=== PATIENT | male | born 1990 | race Caucasian/White ===

== ENCOUNTER 2023-05-09 07:47 | Emergency (ER) | payer MEDICAID, SELFPAY ==
[2023-05-09 07:49] VITALS: BP 157/96; PULSE 64; RESP 14; TEMP 36.6; O2SAT 99; BMI 28.6
--- NOTE | 2023-05-09 08:01 | EDS_ITS ---
HPI History of Present Illness Chief Complaint: GI Bleed Informant: patient Narrative Narrative: Patient states for the last year or so, he wakes up every morning with a lot of congestion/phlegm that he needs to clear, he ends up coughing some but vomiting almost every morning, occasionally there are small bits of blood but nothing major, this morning this occurred and for the first time he vomited twice and there was ash blood both times. He feels fine now. No other symptoms. He denies any pain when he eats, any abdominal discomfort, any trouble breathing. Some occasional sharp chest pains on the right that did not occur this morning. [facility] Medical History no medical history no medical history Allergy/AdvReac Type Severity Reaction Status Date / Time No Known Allergies Allergy Verified 05/09/23 07:48 Surgical History unable to obtain unable to obtain (Surgery throat/neck, unknown if ENT, GI, general, etc.) Social History Smoking Status: Never smoker ROS ROS ED Constitutional Constitutional ED: Denies chills or fever(s) Eyes Eyes: Denies change in vision or diplopia ENT ENT ED: Reports as per HPI and nasal congestion; Denies headache(s), rhinorrhea, sore throat or vertigo Cardiovascular Cardiovascular: Denies chest pain or palpitations Respiratory/Chest Respiratory/Chest: Denies cough or dyspnea Gastrointestinal Gastrointestinal: Reports nausea and vomiting; Denies abdominal pain or diarrhea Genitourinary Genitourinary ED: Denies dysuria or hematuria Musculoskeletal Musculoskeletal: Denies back pain or neck pain Integumentary Denies abscess or rash Neurologic Neurologic: Denies headache(s), paresthesias or weakness Psychiatric Psychiatric: Denies anxiety or suicidal thoughts EXAM Physical Exam Const Vital Signs: 05/09/23 07:49 Temperature 98 F Temperature Source Temporal Pulse Rate 64 Respiratory Rate 14 Blood Pressure 157/96 H Blood Pressure Mean 116 Pulse Ox 99 Oxygen Delivery Method Room Air Positive well nourished and well developed General Appearance ED: well developed and NAD HEENT Reports moist mucous membranes HEENT Narrative: P OP clear, normal. No sign of bleeding or residual blood. No nasal blood. normocephalic and atraumatic Eyes PERRL and EOMs intact bilaterally Neck full ROM and supple Chest Wall inspection of chest normal and palpation of chest normal Resp normal respiratory effort and clear to auscultation bilaterally Cardio regular rate, regular rhythm and no murmurs Rate: Negative for tachycardic GI non-tender and non-distended Auscultation: normoactive bowel sounds Palpation: soft Back/Spine no CVA tenderness General Back: other FROM Extremity normal to inspection General Extremety ED: Negative for edema, pulses abnormal or tenderness General Extremity: Negative for edema or pulses abnormal Neuro oriented x3, CN's II-XII intact bilaterally and no sensory deficits noted Sensorium / Orientation: awake and alert Motor Exam: strength 5/5 throughout Skin no rashes or lesions noted and no wounds MDM MDM MDM Narrative Medical decision making narrative: Labs obtained and are reassuringly normal. No elevated BUN to suggest a significant upper GI bleed. He was given a Protonix prior to these labs returning but I do not think we need to put him on it going forward. I think this sounds more like an ENT issue which is probably the source of the bleeding, but I do not think getting any imaging right now is necessarily going to help emergently. I think he is probably going to need a scope if the symptoms continue, so I will refer him to ENT and also GI. He does not need scoped emergently. No one is on-call at this time. Lab Data Attestation: I reviewed the patient's lab results. Labs: Laboratory Results - last 24 hr 05/09/23 08:05 WBC 5.4 RBC 4.68 Hgb 13.5 Hct 41.9 MCV 89.5 MCH 28.8 MCHC 32.2 RDW Std Deviation 40.8 RDW Coeff of Ernie 12.6 Plt Count 235 MPV 10.5 Immature Gran % (Auto) 0.900 Neut % (Auto) 60.6 Lymph % (Auto) 27.9 [place] % (Auto) 7.8 Eos % (Auto) 2.2 Baso % (Auto) 0.6 Absolute Neuts (auto) 3.3 Absolute Lymphs (auto) 1.50 Nucleated RBC % 0 Sodium 140 Potassium 4.1 Chloride 109 H Carbon Dioxide 27.0 Anion Gap 4 L BUN 15 Creatinine 1.06 Estim Creat Clear Calc 115.24 Est GFR (MDRD) Af Amer 103 Est GFR (MDRD) Non-Af 85 BUN/Creatinine Ratio 14.2 Glucose 105 Calcium 8.9 Discharge Plan Triage Chief Complaint: GI Bleed ED Provider: Anthony Alvarado Dx/Rx/DC Orders Clinical Impression: Chronic nasal congestion, Hematemesis Instructions: ED Upper GI Bleeding (Stable) Primary Care Provider: Care Physician,No Primary Referrals: José Miguel Izquierdo MD [Med Staff - Active Staff] - Friend,DO Bradley [Med Staff - Active Staff] - Care Physician,No Primary [Primary Care Provider] - Disposition Disposition: Home, Self Care
[2023-05-09 08:15] LABS: Absolute Neutrophil Count 3.3 X10^3/uL (2.0-7.7); Basophil# 0.03 X10^3/uL; Basophil% 0.6 % (0-1); Eosinophil# 0.12 X10^3/uL; Eosinophils% 2.2 % (0-5); Hematocrit 41.9 % (40-54); Hemoglobin 13.5 g/dL (13.0-16.5); Lymphocyte % 27.9 % (19-41); Mean Corp Hgb Conc 32.2 g/dL (32-36); Mean Corpuscular Hgb 28.8 pg (27.0-32.0); Mean Corpuscular Volume 89.5 fL (80-94); Mean Platelet Vol. 10.5 fl (6.2-12.0); Monocyte# 0.42 X10^3/uL; Monocyte% 7.8 % (0-10); NRBC Flagged by Analyzer 0 % (0-5); Neutrophil # 3.26 X10^3/uL (2.7-7.7); Neutrophil % 60.6 % (47-70); Platelet Count 235 K/mm3 (150-450); RBC Distribution Width CV 12.6 % (11.6-14.6); RBC Distribution Width SD 40.8 fl (35.1-43.9); Red Blood Count 4.68 M/mm3 (4.6-6.2); White Blood Count 5.4 K/mm3 (4.4-11.0)
[2023-05-09] MEDS: Pantoprazole Sodium 40 MG Tablet PO (08:15)
[2023-05-09 08:27] LABS: Anion Gap 4 (5-15); BUN 15 mg/dL (7-18); BUN/Creat Ratio 14.2 RATIO (10-20); Calcium,Total 8.9 mg/dL (8.5-10.1); Chloride 109 mmol/L (98-107); Creatinine, Serum 1.06 mg/dL (0.70-1.30); EST Glomerular Filtration Rate 85 mL/min (>60); Est Glom Filt Rate - Afr Amer 103 mL/min (>60); Estimated Creatinine Clearance 115.24 ml/min; Glucose 105 mg/dL (74-106); Potassium 4.1 mmol/L (3.5-5.1); Sodium Level 140 mmol/L (136-145)
== END 2023-05-09 09:32 | disposition home or self-care (01) ==
PROVIDERS: Emergency Provider Emergency Medicine; Visit Provider Emergency Medicine
DX: R09.81 Nasal congestion (principal); K92.0 Hematemesis
CPT/HCPCS: 80048; 85025; 99283; A4216

== ENCOUNTER → 2023-06-05 | Outpatient (CLI) | payer MEDICAID, SELFPAY ==
--- NOTE | 2023-06-06 10:37 | PFT ---
INTRODUCTION: The patient is a 32-year-old male who presents for pulmonary function studies secondary to a diagnosis of hemoptysis. Respiratory therapy reported good patient effort. Bronchodilators were used during testing. INTERPRETATION: Forced expiration spirometry demonstrated no evidence of a large airways obstructive ventilatory defect. There was no significant response to aerosolized bronchodilators. Spirograms are of good quality and plateau normally. The respiratory flow-volume loop is normal. Body plethysmography was performed and revealed lung volumes to be within normal limits. Diffusing capacity by single breath CO was also within normal limits. IMPRESSION: Grossly normal pulmonary function studies.
== END | disposition home or self-care (01) ==
LOC: PSN 08:41
PROVIDERS: Referring Provider Internal Medicine Critical Care Medicine; Visit Provider Internal Medicine Critical Care Medicine
DX: R04.2 Hemoptysis (principal)
CPT/HCPCS: 94060; 94726; 94729

== ENCOUNTER → 2023-09-10 | Outpatient (CLI) | payer MEDICAID, SELFPAY ==
--- NOTE | 2023-09-10 08:51 | CT_ITS ---
INDICATION: Hemoptysis EXAMINATION: CT CHEST WITH CONTRAST - CT Chest W/ Contrast Injection TECHNIQUE: Helically acquired images were obtained of the chest following IV contrast. A radiation dose optimization technique was used for this scan. IV Contrast dosage and agent: 100 mL Isovue 300 contrast COMPARISON: None. FINDINGS: LUNGS, PLEURA AND LARGE AIRWAYS: No masses, consolidation, or edema. No pleural effusion or thickening. No pneumothorax. THYROID: No thyroid lesions. HEART AND PERICARDIUM: Heart size is normal. No pericardial effusion. VESSELS: Thoracic aorta is not dilated. No aortic dissection. No obvious central pulmonary embolism although this study was not performed with the pulmonary embolism protocol. MEDIASTINUM AND CHRISTINA: No mediastinal or hilar adenopathy. Esophagus is unremarkable. No hiatal hernia. UPPER ABDOMEN: No acute pathology. BONES: No suspicious lytic or blastic abnormality. CT/Chest WITH Contrast IMPRESSION: Negative contrast enhanced CT of the chest. Electronically Signed: Ortega Barry MD at 10:56 EST ,
== END | disposition home or self-care (01) ==
LOC: CT 08:51
PROVIDERS: Referring Provider Internal Medicine Critical Care Medicine; Visit Provider Internal Medicine Critical Care Medicine
DX: R04.2 Hemoptysis (principal)
CPT/HCPCS: 71260; Q9967

== ENCOUNTER 2023-09-12 10:08 | Emergency (ER) | payer MEDICAID, SELFPAY ==
[2023-09-12 10:09] VITALS: BP 152/96; PULSE 83; RESP 16; TEMP 36.8; O2SAT 100; BMI 29.7
--- NOTE | 2023-09-12 10:36 | EKG12_ITS ---
Test Reason : CP Blood Pressure : / mmHG Vent. Rate : 055 BPM Atrial Rate : 055 BPM P-R Int : 148 ms QRS Dur : 094 ms QT Int : 414 ms P-R-T Axes : 031 059 043 degrees QTc Int : 396 ms Sinus bradycardia Otherwise normal ECG Confirmed by TRAY DAI, PADMINI ([id number]), script editor SYLVIE RAMIREZ ([id number]) on 09/16/2023 8:23:39 AM Referred By: PARKER/FARNAZ Confirmed By:PADMINI FELIZ MD
--- NOTE | 2023-09-12 10:42 | EDS_ITS ---
HPI History of Present Illness Chief Complaint: Syncope Informant: patient Narrative Narrative: Patient presents after episode of chest pain. Patient states he was watching TV last night. He had eaten lasagna and thought it tasted great. He got pain in his right lower chest or right upper quadrant area. He thought this might be gas pains or he had to move his bowels. So he got up and went to the bathroom. Evidently while sitting on the toilet he got pale lightheaded. His checked on him. He reports that he evidently curled over in a ball and his arms got real tight. No tonic-clonic shaking. He seemed to be less responsive. But he did not fall. His then got him up and he went into the other room. He said this whole episode lasted probably anywhere from about 15 seconds to a max of 3 minutes. He does not have pain in that area anymore. He does have a little soreness in his left upper chest. But it is not sharp or pleuritic. Not tearing or ripping. It does not radiate. He also states he just does not feel real well today. But no specific symptoms. He does not have chest pain with a deep breath now. He is not coughing. Patient does have a history of some episodes of hemoptysis over the last couple months. He just had a CT scan of the chest with contrast yesterday. I reviewed this outpatient study. Although it was not specifically timed as a pulmonary embolus protocol, they comment no significant PE or dissection. Patient has no recent travel surgery immobilization personal or family history of DVT or PE or leg pain or swelling. He is not having hemoptysis now. There is no family history of heart disease. He used to smoke but quit 7 or 8 years ago. No blood pressure or diabetes. He has never had a seizure. He was evidently not postictal or confused for period of time after this. [facility] Medical History (Updated 09/12/23 @ 13:[address] Fredy Villa MD) Syncope Home Medications NK 05/30/23 [History Last Taken Unknown] Allergy/AdvReac Type Severity Reaction Status Date / Time No Known Allergies Allergy Verified 09/12/23 10:09 Social History household members: spouse and children Smoking Status: Unknown if ever smoked Tobacco: How many years used: 10 second hand exposure: Yes alcohol intake: current alcohol intake frequency: holidays/special occasions only caffeine: Yes ROS ROS ED ROS Narrative A complete review of systems was performed and is negative except as documented in the history of present illness. Some specific details below. Constitutional: No recent fevers or chills. He states he does have a mild sense of malaise. EYE: No discharge, visual complaints, or pain. ENT: No difficulty swallowing. No swelling. No pain. No reflux symptoms. No history of GERD. CV: See history of present illness. Respiratory: See history of present illness. Not coughing and not hypoxic or short of breath now. GI: No abdominal pain now. He did have pain in either the right lower chest or right upper quadrant yesterday/last night but not currently. No nausea vomiting diarrhea. No blood in stool. : No frequency dysuria or hematuria. No history of kidney stones. Musculoskeletal: No recent trauma. No pains. No swelling. Skin: No rash. Nondiaphoretic. Neuro: No weakness or numbness. Endocrine: No polyuria or polydipsia. EXAM Physical Exam Narrative Exam Narrative: CONSTITUTIONAL: Patient is nontoxic in appearance. The patient looks comfortable. Work of breathing looks normal. HEENT: No notable trauma. Mucous membranes moist. No sinus tenderness. No indication of pain with swallowing. EYES: No pallor or icterus. NECK:No JVD. No stridor. CARDIOVASCULAR: Regular rate. Regular rhythm. No notable murmur. No JVD. Rates only about 60 on exam. Peripheral pulses are normal x 4. RESPIRATORY: No respiratory distress. Breathing is unlabored. No wheezes. No rhonchi. No rales. No pain with a deep breath. No chest wall tenderness. Pulmonary exam is very benign. Saturations are 100% on room air showing no hypoxia. GASTROINTESTINAL: Not distended. Bowel sounds are normal. No tenderness. No guarding. No rebound. No palpable mass. No bruit is heard. GENITOURINARY: No tenderness over the bladder. No CVA tenderness. MUSCULOSKELETAL: Atraumatic. No peripheral edema. No cord. No tenderness along the deep venous system. No asymmetry. No distended veins. NEUROLOGICAL: Patient is alert and appropriate. No focal deficit noted. SKIN: No noted rashes. No diaphoresis. PSYCHIATRIC: Patient is calm. Mood is appropriate. Const Vital Signs: 09/12/23 10:09 09/12/23 11:00 09/12/23 11:02 Temperature 98.2 F Temperature Source Temporal Pulse Rate 83 64 Respiratory Rate 16 18 Respiratory Effort Normal Non-Labored Respiratory Pattern Normal Blood Pressure 152/96 H 131/81 H Blood Pressure Mean 114 97 Pulse Ox 100 95 Oxygen Delivery Method Room Air Room Air 09/12/23 11:17 Temperature Temperature Source Pulse Rate 70 Respiratory Rate 16 Respiratory Effort Respiratory Pattern Blood Pressure 137/85 H Blood Pressure Mean 102 Pulse Ox 97 Oxygen Delivery Method MDM MDM MDM Narrative Medical decision making narrative: My independent interpretation of the patient's chest x-ray shows no acute process. Patient CBC is normal including white count hemoglobin and platelets. Graph scarlett gonzales's electrolytes are normal. Patient is function test are normal. Patient is lipase is normal. Patient's troponin is negative Patient's COVID test is positive. His influenza and RSV's are negative. Patient has remained asymptomatic here. He had this event occur last night. I do not think we need to repeat the CT of his chest. He had 1 done yesterday. He is PERC negative. We will get him home at this time. I think seizure is less likely as he had no tonic-clonic activity. But outpatient EEG is not unreasonable. We will refer him to a primary physician. We discussed reasons to return. Lab Data Attestation: I reviewed the patient's lab results. Labs: Laboratory Results - last 24 hr 09/12/23 10:23 WBC 6.0 RBC 4.94 Hgb 14.2 Hct 43.6 MCV 88.3 MCH 28.7 MCHC 32.6 RDW Std Deviation 39.8 RDW Coeff of Ernie 12.4 Plt Count 231 MPV 10.8 Immature Gran % (Auto) 0.700 Neut % (Auto) 61.0 Lymph % (Auto) 23.7 [place] % (Auto) 13.1 H Eos % (Auto) 1.2 Baso % (Auto) 0.3 Absolute Neuts (auto) 3.6 Absolute Lymphs (auto) 1.41 Nucleated RBC % 0 Sodium 140 Potassium 3.8 Chloride 107 Carbon Dioxide 26.0 Anion Gap 7 BUN 11 Creatinine 1.18 Estim Creat Clear Calc 103.52 Est GFR (MDRD) Af Amer 91 Est GFR (MDRD) Non-Af 75 BUN/Creatinine Ratio 9.3 L Glucose 94 Calcium 8.7 Total Bilirubin 0.70 AST 23 ALT 29 Alkaline Phosphatase 95 Troponin I High Sens 17 Total Protein 8.1 Albumin 3.9 Globulin 4.2 Albumin/Globulin Ratio 0.9 Lipase 37 Radiography Diagnostic Testing: Clinical Impression(s) from Imaging Studies Chest X-Ray 09/12/23 10:52 IMPRESSION: No radiographic evidence of acute cardiopulmonary disease. Electronically Signed: Isidoro Berger MD at 11:30 EST , EKG Initial EKG: Comments: My independent interpretation of the patient's EKG shows sinus rhythm with bradycardic rate at 55. No acute ST elevation or depression. VT interval, QRS duration and QTc is normal. Discharge Plan Triage Chief Complaint: Syncope ED Provider: Fredy Villa Dx/Rx/DC Orders Clinical Impression: COVID-19, Episode of syncope, Chest pain Instructions: Coronavirus Disease 2019 (COVID-19): Caring for Yourself or Others, ED Fainting, Uncertain Cause Prescriptions: No Action NK Primary Care Provider: Care Physician,No Primary Referrals: Fritz Burrell MD [Med Staff - Industrial [employer] Helper] - As soon as possible Care Physician,No Primary [Primary Care Provider] - Disposition Disposition: Home, Self Care
--- NOTE | 2023-09-12 10:46 | NURSING ---
NO OLD EKGS
--- NOTE | 2023-09-12 10:52 | RAD_ITS ---
INDICATION: chest pain EXAMINATION/TECHNIQUE: X-RAY - XR Chest 1 View COMPARISON: CT scan of the chest of 09/10/2023. FINDINGS: LINES/DEVICES: None. LUNGS: No consolidation, edema or effusion. No pneumothorax. MEDIASTINUM AND CARDIOVASCULAR STRUCTURES: Cardiac silhouette not enlarged. Central airways and mediastinal contour are unremarkable. BONES AND SOFT TISSUES: Unremarkable. RAD/Chest 1 View (Portable) IMPRESSION: No radiographic evidence of acute cardiopulmonary disease. Electronically Signed: Isidoro Berger MD at 11:30 EST ,
[2023-09-12 10:54] LABS: Absolute Lymphocyte Count 1.41 X10^3/uL (0.83-4.51); Absolute Neutrophil Count 3.6 X10^3/uL (2.0-7.7); Basophil# 0.02 X10^3/uL; Basophil% 0.3 % (0-1); Eosinophil# 0.07 X10^3/uL; Eosinophils% 1.2 % (0-5); Hematocrit 43.6 % (40-54); Hemoglobin 14.2 g/dL (13.0-16.5); Lymphocyte # 1.41 X10^3/ul (0.83-4.51); Lymphocyte % 23.7 % (19-41); Mean Corp Hgb Conc 32.6 g/dL (32-36); Mean Corpuscular Hgb 28.7 pg (27.0-32.0); Mean Corpuscular Volume 88.3 fL (80-94); Mean Platelet Vol. 10.8 fl (6.2-12.0); Monocyte# 0.78 X10^3/uL; Monocyte% 13.1 % (0-10); NRBC Flagged by Analyzer 0 % (0-5); Neutrophil # 3.63 X10^3/uL (2.7-7.7); Platelet Count 231 K/mm3 (150-450); RBC Distribution Width CV 12.4 % (11.6-14.6); RBC Distribution Width SD 39.8 fl (35.1-43.9); Red Blood Count 4.94 M/mm3 (4.6-6.2)
[2023-09-12] MEDS: 0.9% Normal Saline (1000mL) 1,000 ML 1000 ML IV (10:56)
--- OUTSIDE RECORDS SUMMARY | 2023-09-12 10:57 | XMS RPT_ITS | CCD ---
Author Name Unknown Address [address] [place] [address] [address] [place] [address] Organization [facility] Care Team Providers Care Glaze Grinder Name Role Phone Mecca DAI, Pranav Crenshaw Primary Care Provider Unavailable Primary Care Provider Unavailabl e Medications Completed/Discontinued Medications Medication Drug Class(es) Dates Sig (Normalized) Sig (Original) FLINTSTONES MULTIVITAMIN ORAL (1 source) FLINTSTONES MULTIVITAMIN ORAL Take by mouth. 0 Active Problems Problem Classification Problem Date Documented Da te Episodic/Chronic Gastrointestinal hemorrhage (1 source) Hematemesis; Translations: [Hematemesis] 05-09-2023 Episodic Other lower respiratory disease (2 sources) Dyspnea; Translations: [Shortness of breath] Onset: 01-23-2021 Episodic Residual codes; unclassified (1 source) Obstructive sleep apnea syndrome; Translations: [Obstructive sleep apnea (adult) (pediatric)] Onset: 01-23-2021 01-23-2021 Chronic Results Test Name Value Interpretation Reference Range Facil ity Vital Signs Date Time Vital Sign Value Performing Clinician Griselda whalen 05-09-2023 07:20-0400 Body temperature 96.6 [degF] Batool BARAJAS-Clarke Work Phone: [facility] 05-09-2023 07:20-0400 Body weight 101.79 kg Batool Cooper PA-C Work Phone: [facility] 05-09-2023 07:20-0400 Diastolic blood pressure 88 mm[Hg] Batool Cooper PA-C Work Phone: [facility] 05-09-2023 07:20-0400 Heart rate 62 /min Batool Cooper PA-C Work Phone: [facility] 05-09-2023 07:20-0400 Respiratory rate 18 /min Batool Cooper PA-C Work Phone: [facility] 05-09-2023 07:20-0400 SaO2% (BldA) [Mass fraction] 99 % Batool Cooper PA-C Work Phone: [facility] 05-09-2023 07:20-0400 Systolic blood pressure 151 mm[Hg] Batool Cooper PA-C Work Phone: [facility] Encounters Encounter Date Encounter Type Care Provider Facility Start: 05-09-2023 End: 05-09-2023 ambulatory Facility:[facility] Start: 05-09-2023 End: 05-09-2023 Patient encounter procedure Batool Cooper PA-C Work Phone: [facility] Procedures Date Procedure Procedure Detail Performing Clinician Start: 01-23-2021 Radiologic exam ches t 2 views Pranav Wing MD Work Phone: Plan of Treatment Date Care Activity Detail Author Start: 05-16-2023 Influenza vaccination INFLUENZA (#1) [facility] Start: 09-15-2022 DEPRESSION ASSESSMENT DEPRESSION ASS ESSMENT [facility] Start: 01-23-2022 COVID-19 Vaccine (1) COVID-19 Vaccin e (1) [facility] Work Phone: Payers Date Payer Category Payer Unknown [facility] [id number] 2019-Present [phone] [place] [id number] Social History Date Type Detail Facility Start: 01-23-2021 End: 05-09-2023 Tobacco smoking status NHIS Former smoker [facility] End: 09-15-2005 History of tobacco use Current smoker [facility] End: 09-15-2005 History of tobacco use Cigarette Smoker [facility] Start: 08-24-2020 End: 01-23-2021 Cigarettes smoked current (pack per day) - Reported [facility] Work Phone: Start: 01-23-2021 Tobacco use and exposure Current user [facility] History of tobacco use Chews Tobacco [facility] Start: 01-23-2021 Alcohol intake Ex-drinker (finding) [facility] Work Phone: Start: 01-23-2021 History SDOH Alcohol Frequency 1 [facility] Work Phone: Start: 01-23-2021 History SDOH Alcohol Std Drinks 99 [facility] Work Phone: Start: 01-23-2021 History SDOH Physica l Activity DPW 0 [facility] Work Phone: Start: 01-23-2021 History SDOH Financial 5 [facility] Work Phone: Start: 01-23-2021 History SDOH Transpo rt Med 2 [facility] Work Phone: Start: 1990 Sex Assigned At Not on file [facility] Work Phone: Exposure to SARS-CoV -2 (event) Not sure [facility] Start: 05-09-2023 Tobacco use and exposure Former smokeless tobacco user [facility] Start: 05-09-2023 Alcohol intake Current drinke r of alcohol (finding) [facility] Start: 08-24-2020 End: 05-09-2023 Tobacco use panel [facility] National Score (1-10 0), lower number is lower risk Not on file [facility] Start: 04-28-2018 Alcohol Comment rare [facility] Progress note 05-09-2023 Note Date & Type Note Facility 05-09-2023 Note HNO ID: [id number] Author: Batool Cooper PA-C Service: ? Author Type: Physician Bench Worker Type: Progress Notes Filed: 05/09/2023 7:31 AM Note Text: Patient presents to express care triage with a chief complaint of vomiting blood. He states he typically will vomit in the morning but this morning had vomited once and had a mouthful of bright red blood. Denies any abdominal or chest pain. Denies any history of alcoholism or esophageal varices. He denies history of peptic ulcer disease. Discussed with patient for this complaint would recommend he be seen in the emergency department. Referred to [facility] ed. [facility] History of Present illness Narrative 05-09-2023 Batool Cooper PA-C - 05/09/2023 7:29 AM EDT Note Date & Type Note Facility 05-09-2023 History of Presen t illness Narrative Patient presents to express care triage with a chief complaint of vomiting blood. He states he typically will vomit in the morning but this morning had vomited once and had a mouthful of bright red blood. Denies any abdominal or chest pain. Denies any history of alcoholism or esophageal varices. He denies history of peptic ulcer disease. Discussed with patient for this complaint would recommend he be seen in the emergency department. Referred to [facility] ed. documented in this encounter [facility] Evaluation note Note Date & Type Note Facility documented in this encounter [employer] Phone: Evaluation note Note Date & Type Note Facility documented in this encounter [facility] Summary Purpose Family History No Family History Records FoundNo Family History Records FoundNo Family History Records Found Advance Directives No Advanced Directives Records FoundNo Advanced Directives Records FoundNo Advanced Directives Records Found Additional Source Comments (unrecognized sect ion and content) No Status Records FoundNo Status Records FoundNo Status Records Found INFORMATION SOURCE (unrecogn ized section and content) DATE CREATED AUTHOR AUTHOR'S ORGANIZ ATION 05/10/2023 [facility] DATE CREATED AUTHOR AUTHOR'S ORGANIZ ATION 05/20/2023 [facility] [employer] [facility] Source Comments (unrecognize d section and content) In the event this informatio n is protected by the Federal Confidentiality of Alcohol and Drug Abuse Patient Records regulations: The Federal rules restrict any use of the information to criminally investigate or prosecute any alcohol or drug abuse patient.[facility] Reason for Visit (unrecogniz ed section and content) FOR RECORDS PERTAINING TO PATIENTS WHO ARE OR HAVE BEEN ENROLLED IN A CHEMICAL DEPENDENCY/SUBSTANCEABUSE PROGRAM, SOME INFORMATION MAY BE OMITTED. This clinical summary was aggregated from multiple sources. Caution should be exercised in using it in the provision of clinical care. This summary normalizes information from multiple sources, and as a consequence, information in this document may materially change the coding, format and clinical context of patient data. In addition, data may be omitted in some cases. CLINICAL DECISIONS SHOULD BE BASED ON THE PRIMARY CLINICAL RECORDS. [facility] provides no warranty or guarantee of the accuracy or completeness of information in this document.
[2023-09-12 11:02] VITALS: BP 131/81; PULSE 64; RESP 18; O2SAT 95
[2023-09-12 11:06] LABS: ALB/GLOB Ratio 0.9 RATIO (0.9-2.4); AST(SGOT) 23 U/L (15-37); Alanine Aminotransfer ALT/SGPT 29 U/L (16-61); Albumin, Serum 3.9 g/dL (3.2-5.0); Alkaline Phosphatase 95 U/L (45-117); Anion Gap 7 (5-15); BUN 11 mg/dL (7-18); BUN/Creat Ratio 9.3 RATIO (10-20); Calcium,Total 8.7 mg/dL (8.5-10.1); Chloride 107 mmol/L (98-107); Creatinine, Serum 1.18 mg/dL (0.70-1.30); EST Glomerular Filtration Rate 75 mL/min (>60); Est Glom Filt Rate - Afr Amer 91 mL/min (>60); Estimated Creatinine Clearance 103.52 ml/min; Globulin 4.2 g/dL (2.2-4.2); Glucose 94 mg/dL (74-106); Lipase 37 U/L (13-75); Potassium 3.8 mmol/L (3.5-5.1); Protein, Total 8.1 g/dL (6.4-8.2); Sodium Level 140 mmol/L (136-145); Troponin-I HS 17 pg/mL (3.0-78.0)
[2023-09-12 11:17] VITALS: BP 137/85; PULSE 70; RESP 16; O2SAT 97
== END 2023-09-12 13:33 | disposition home or self-care (01) ==
PROVIDERS: Emergency Provider Emergency Medicine; Visit Provider Emergency Medicine
DX: U07.1 COVID-19 (principal); R55 Syncope and collapse; R07.9 Chest pain, unspecified; Z87.891 Personal history of nicotine dependence
CPT/HCPCS: 71045; 80053; 83690; 84484; 85025; 87631; 93005; 96360; 99283; J7030; A4216